=== PATIENT | female | born 1980 | race African-American/Black ===

== ENCOUNTER 2021-10-19 02:24 | Emergency (ER) | payer OTHER ==
[2021-10-19] MEDS ORDERED: VIBRAMYCIN100 MG PO (02:40)
[2021-10-19] MEDS ORDERED: NAPROXEN500 MG PO (02:40)
[2021-10-19] MEDS ORDERED: NORCO 5-325 TA1 EACH PO (02:40)
== END 2021-10-19 02:45 | disposition home or self-care (01) ==
LOC: FER 02:24
DX: L03.116 Cellulitis of left lower limb (principal)
CPT/HCPCS: J1885

== ENCOUNTER 2021-11-26 06:49 | Emergency (ER) | payer OTHER ==
[~2021-11-26 06:49] MED LIST: NAPROXEN500 MG PO; NORCO 5-325 TA1 EACH PO; VIBRAMYCIN100 MG PO
[2021-11-26 07:37] LABS: BASOPHIL 0.7 % (0-2); EOSINOPHIL 2.9 % (0-5); HCT 38.8 % (37.0-47.0); HGB 12.5 g/dl (12.5-16.0); LYMPHOCYTE 36.3 % (15-48); MCH 29.3 pg (25.0-31.0); MCHC 32.2 g/dL (32.0-36.0); MCV 91.1 fL (78.0-100.0); MONOCYTE 7.8 % (0-12); MPV 9.1 fL (6.0-9.5); NEUTROPHIL 52.1 % (41-80); NRBC 0; PLT 435 K/uL (150-400); RBC 4.26 M/uL (4.20-5.40); RDW 12.6 % (11.5-14.0); WBC 8.6 K/uL (4.0-10.5)
[2021-11-26 07:51] LABS: ALBUMIN 3.4 g/dL (3.4-5.0); BILIRUBIN - TOTAL 0.4 mg/dL (0.2-1.0); BUN/CREAT RATIO (CALC) 13.5 RATIO; CREATININE 0.74 mg/dL (0.51-0.95); GLOBULIN (CALCULATION) 3.9 g/dL; POTASSIUM 3.6 mmol/L (3.5-5.1); TOTAL PROTEIN 7.3 g/dL (6.4-8.2)
== END 2021-11-26 10:21 | disposition home or self-care (01) ==
LOC: FER 06:49
PROVIDERS: Emergency Medicine
DX: R07.89 Other chest pain (principal)
CPT/HCPCS: 36415; 71045; 80053; 83880; 84484; 85025; 85379